=== PATIENT | female | born 1955 | race Caucasian/White ===

== ENCOUNTER 2016-06-10 07:52 | Outpatient (CLI) | payer OTHER ==
[2015-10-05 12:09] VITALS: BP 115/79
[2016-06-10] MEDS ORDERED: PROPOFOL 200 MG/20 ML VIAL IV ONE (08:00)
[2016-06-10] MEDS ORDERED: KETAMINE HCL 200 MG/20 ML VIAL ONE (08:00)
[2016-06-10] MEDS ORDERED: SALINE FLUSH 10 ML DISP.SYRIN IVF ONE (08:00)
[2016-06-10] MEDS ORDERED: TRIAMCINOLONE ACETONID 40MG/ML VIAL ONE (08:00)
[2016-06-10] MEDS ORDERED: LACTATED RINGERS 500 ML IV.SOLN IV ONE (08:00)
[2016-06-10] MEDS ORDERED: BUPIVACAINE HCL/EPINEPHRINE/PF 0.25% VIAL IM ONE (08:00)
[2016-06-10] MEDS ORDERED: LIDOCAINE HCL/PF 2% 100 MG/5 ML VIAL IJ ONE ×2 (08:00)
--- NOTE | 2016-06-10 10:43 | GENERIC FACET RF ---
SUBJECTIVE: I had the opportunity of seeing Oksana Chambers today in follow up. This is a patient with lumbar spondylosis. Her right side is much improved following radiofrequency neurolysis. She had better than 80% improvement with lumbar facet medial branch blocks and she presents for left L4, L5, and sacral ala radiofrequency neurolysis today under fluoroscopy. Anesthesia was requested because of opiate hypersensitivity and anxiety. ANESTHESIA: Monitored anesthesia care. ANESTHESIOLOGIST: Ny Branham CRNA PROCEDURE: Left L4, L5, and sacral ala lumbar facet radiofrequency neurolyses with fluoroscopic guidance (neurolyses of 3 medial nerve branches). DESCRIPTION OF PROCEDURE: The risks and benefits of the procedure were explained to the patient including the risk of infection, bleeding and unintended nerve injury, including the risk of radicular motor or sensory nerve injury and increased pain following the procedure. In addition, the risk of steroid exposure causing hyperglycemia, hypertension, osteoporosis, and increased infectious risks were explained to the patient. The patient understood these risks and agreed to proceed. The patient was placed in the prone position on the fluoroscopy table. The low back was cleaned and sterile drapes were applied. AP, lateral and oblique fluoroscopic views were obtained of the lumbar spine. An oblique fluoroscopic view was obtained of the left L4 lumbar vertebral body and transverse process. A 10 centimeter RFK introducer needle with a 10 mm active tip was advanced under direct fluoroscopic guidance until the tip of the introducer needle was located parallel to the medial branch of the posterior nerve root supplying the facet joint. This location was at the junction of the left transverse process of L4 with the superior articulating process. It was verified that there was no aspiration of CSF or blood from the needle tip. AP and lateral fluoroscopic views were obtained to verify the position of the needle as located at the junction of the transverse process and superior articulating process and to verify that the needle tip was not located within the epidural or intrathecal space. A 10 centimeter RFK radiofrequency probe was then introduced via the introducer needle and a 2 Hz stimulus was effected, gradually increasing the voltage to 2.5 volts, to verify that there was no motor neuron activation causing significant muscle contraction in the lower extremity or back. The probe was then removed from the introducer needle. Triamcinolone acetate, 2% lidocaine, and 0.25% bupivacaine with epinephrine was then injected through the introducer needle. The probe was reintroduced into the needle. A radiofrequency lesion was then effected at a temperature of 80 degrees for a period of 60 seconds. The needle was then rotated 180 degrees and withdrawn approximately 3 mm and a second lesion was effected for a period of 60 seconds at a temperature of 80 degrees C. The stylet was replaced in the introducer needle and the introducer was removed from the back. This exact procedure was repeated at the following levels: L5 and sacral ala ( for a total of 3 medial branch neurolyses). Bandages were applied over the injection sites. The patient was monitored for 20 minutes following the injection, during which time the patient experienced no adverse sequelae. The patient was discharge home in good condition with a flatbed truck driver driving the patient home. ASSESSMENT: Lumbar spondylosis/facet arthropathy. PLAN: Left L4, L5, and sacral ala lumbar facet radiofrequency neurolyses with fluoroscopic guidance (neurolyses of 3 medial nerve branches). FOLLOWUP: Return to clinic of problems develop or worsen. WINIFRED
== END 2016-06-10 07:53 ==
LOC: OUT 07:52
PROVIDERS: ATTEND Anesthesiology Pain Medicine
DX: M47.816 Spondylosis without myelopathy or radiculopathy, lumbar region (principal)
CPT/HCPCS: J2001; J2704; J3301; J7120; 64635; 64636; 99213; S1016

== ENCOUNTER 2016-07-22 08:20 | Outpatient (CLI) | payer OTHER ==
[2015-10-05 12:09] VITALS: BP 115/79
[~2016-07-22 08:20] MED LIST: BUPIVACAINE HCL/EPINEPHRINE/PF 0.25% VIAL IM ONE; Lidocaine 1% 5ml(IM or SUTURE)(PAIN CLINIC) ONE; MIDAZOLAM HCL 2 MG/2 ML VIAL ONE; NORMAL SALINE 500 ML IV.SOLN IV ONE; ONDANSETRON HCL/PF 4 MG/ 2ML VIAL ONE; PROPOFOL 500 MG/50 ML VIAL IV ONE; SALINE FLUSH 10 ML DISP.SYRIN IVF ONE; TRIAMCINOLONE ACETONID 40MG/ML VIAL ONE; fentaNYL CITRATE/PF 100 MCG/ 2ML AMP ONE
--- NOTE | 2016-07-23 11:27 | THORACIC FACET RF RHIZOTOMIES ---
REFERRING PHYSICIAN: Dr. Shasta Urbano Dear Dr. Urbano: SUBJECTIVE: I had the opportunity of following up with Oksana Chambers. This is a 61-year- old white female with thoracic and lumbar spondylosis. She has done very well with facet medial branch block and subsequently, has done well with a radiofrequency neurolysis of the lumbar spine. Her upper back pain is recurring. Low back pain is now controlled and she would like for me to proceed with a radiofrequency neurolysis of the thoracic spine today. She had better than 90% relief with facet medial branch blocks in January of 2016, of T4 , T5, T6, and T7. Plan today for radiofrequency neurolysis at T4 through T7 under monitored anesthesia care, which was necessary because of the degree of discomfort and anxiety that Ms. Chambers was experiencing with a previous injection. ANESTHESIA: Monitored anesthesia care. ANESTHESIOLOGIST: Phani Aquino CRNA PROCEDURE: Bilateral T4-T7 thoracic facet medial branch radiofrequency rhizotomies with fluoroscopic guidance (neurolyses of the 8 medial branches off the posterior primary nerve root rami). DESCRIPTION OF PROCEDURE: The risks and benefits of the neurolyses were explained to the patient, including the risks of infection, bleeding and unintended nerve injury. We also discussed the risk of steroid exposure causing hyperglycemia, hypertension, osteoporosis, or increased infectious risks. Lastly, the risk of pneumothorax was discussed. The patient understood these risks and agreed to proceed. The patient was on the fluoroscopy table in the prone position. The back was cleaned with Betadine scrub times three and a sterile drape was applied. AP and oblique fluoroscopic views were obtained of the thoracic spine. An oblique fluoroscopic view was obtained of the left T4 pedicle, transverse process and rib. A 10 cm RFK radiofrequency probe was then introduced via the introducer needle and a 2 Hz stimulus was effected, gradually increasing the voltage to 2.4 volts, to verify that there was no motor neuron activation causing significant muscle contraction in the chest, lower extremity or back. A 2 Hz stimulus, again, gradually increased the voltage this time all the way up to a voltage of 2.5 volts to verify that there was no motor neuron activation causing significant muscle contraction in the chest, lower extremity or back. Omnipaque 240 myelogram dye was injected through the needle and noted to course over the distribution of the medial branch of the posterior nerve root ramus. AP and lateral fluoroscopic views were obtained to verify the position of the needle as located at the junction of the transverse process and superior articulating process and to verify that the needle tip was not located within the epidural or intrathecal space. Triamcinolone acetate mixed with 1% lidocaine and 0.25% bupivacaine with epinephrine was then injected through the introducer needle. The probe was reintroduced into the needle. A radiofrequency lesion was then effected at a temperature of 80 degrees for a period of 60 seconds. The needle was then rotated 180 degrees and withdrawn approximately 3 mm. and a second lesion was effected for a period of 60 seconds at a temperature of 80 degrees C. The stylet was replaced in the introducer needle and the introducer was removed from the back. This exact procedure was repeated at the following levels: Bilateral T4, bilateral T5, bilateral T6, and bilateral T7 pedicle (for a total of 8 medial branch neurolyses). The patient tolerated the procedure well. The back was cleaned and bandages were applied over the injection sites. The patient was monitored for 20 minutes following the procedure, during this time the patient experienced no adverse sequelae. The patient was discharged home in good condition. ASSESSMENT: Thoracic spondylosis/facet arthropathy. PLAN: Bilateral T4-T7 thoracic facet medial branch radiofrequency rhizotomies with fluoroscopic guidance (neurolyses of the 8 medial branches off the posterior primary nerve root rami. FOLLOW UP: The patient will follow up in [address] Urbano, thank you again for allowing me to take part in the care of this nice lady. cc: Dr. Shasta VITALE
== END 2016-07-22 08:23 ==
LOC: OUT 08:20
PROVIDERS: ATTEND Anesthesiology Pain Medicine
DX: M47.814 Spondylosis without myelopathy or radiculopathy, thoracic region (principal)
CPT/HCPCS: J2250; J2405; J2704; J3010; J3301; J7060; 64633; 64634; 99214; S1016

== ENCOUNTER 2016-08-21 13:51 | Outpatient (CLI) | payer OTHER ==
[2015-10-05 12:09] VITALS: BP 115/79
[2016-08-21 14:11] LABS: BASOPHILS % 0.2 (0.0-1.5); MEAN CORPUSCULAR HEMOGLOBIN 33.3 pg (28.0-34.0); MEAN CORPUSCULAR VOLUME 96.9 fl (80.0-100.0); MONOCYTES % 4.5 % (0.0-11.0); NEUTROPHILS # 5.3 # k/uL (1.4-7.7)
[2016-08-21 14:47] LABS: eGFR (African) > 60; eGFR (Non-African) > 60
== END 2016-08-21 13:52 ==
LOC: LAB 13:51
PROVIDERS: ATTEND Physician Assistant
DX: R00.2 Palpitations (principal)
CPT/HCPCS: 36415; 80053; 85025

== ENCOUNTER 2016-09-23 10:51 | Outpatient (CLI) | payer OTHER ==
[2015-10-05 12:09] VITALS: BP 115/79
--- NOTE | 2016-09-23 15:20 | THORACIC FACET MBB ---
SUBJECTIVE: Ms. Chambers comes in with continued mid-thoracic back pain. I re-examined her. She has positive assist extension and pain and tenderness over the thoracic facet joints appearing more focal. Exam under fluoroscopy reveals increased kyphosis with no evidence of an acute compression fracture. At this point, I am going to place repeat facet medial branch blocks. If her symptoms continue, I would get a new MRI of the thoracic spine looking for a subacute compression fracture. PROCEDURE: Bilateral thoracic facet medial branch blocks with fluoroscopic guidance. DESCRIPTION OF PROCEDURE: The risks and benefits of the facet steroid injections were explained to the patient, including the risks of infection, bleeding and nerve injury. We also discussed the risk of steroid exposure causing hyperglycemia, hypertension, osteoporosis, or increased infectious risks. Lastly, the risk of pneumothorax was discussed. The patient understood these risks and agreed to proceed. The patient was positioned prone on the fluoroscopic procedure table. A sterile prep and drape were applied. Under AP and lateral fluoroscopic imaging , the T5 left transverse process and the superior articular process were identified. The area of the pedicle and the left transverse process were then identified obliquely. A number 25-gauge, 1-1/2-inch needle was advanced to the left T5 facet medial branch nerve. There was negative aspiration of blood or CSF. Following this, 0.25% bupivacaine with epinephrine and triamcinolone acetate was placed. In this exact same fashion, the right T5, bilateral T6, and bilateral T7 facet medial branch blocks were performed (for a total of 6 facet medial nerve branch blocks at 3 bilateral levels). At the conclusion of the procedure, the patient reported better than 50% relief but she was still having some pain symptoms. The patient tolerated the procedure well. The back was cleaned and bandages were applied over the injection sites. The patient was monitored for 20 minutes following the procedure, during this time the patient experienced no adverse sequelae. The patient was discharged home in good condition. ASSESSMENT: Thoracic spondylosis/facet arthropathy. PLAN: We will follow her up next month. If pain persists, I would obtain a new thoracic MRI study. cc: Dr. Elgin VITALE
== END 2016-09-23 10:52 ==
LOC: OUT 10:51
PROVIDERS: ATTEND Anesthesiology Pain Medicine
DX: M47.894 Other spondylosis, thoracic region (principal)
CPT/HCPCS: 64490; 64491; 64492; 99214; J3301

== ENCOUNTER 2016-10-20 10:26 | Outpatient (CLI) | payer OTHER ==
[2015-10-05 12:09] VITALS: BP 115/79
--- NOTE | 2016-10-20 15:00 | Diagnostic Imaging Report ---
[facility] [address] [facility] [address] Report Submission Date: Oct 20, 2016 2:54:35 PM CDT Patient Study Name: FRIDA PALOMARES Date: Oct 20, 2016 11:28:47 AM CDT Modality Type: MR Gender: F Description: MRI L SPINE W/O CONTRAST : 53 Institution: [facility] Physician: BLAS HAMMOND Examination: MRI lumbar spine History: Back discomfort Comparison exam: None available Technique: Lumbar spine MRI protocol. Findings: Normal height of the lumbar vertebral bodies. No anterior compression. Mild listhesis of L4 on L5: Approximately 5%. Disc desiccation L3/ L4 through L5/S1. Disc space narrowing L4/L5 and L5/S1. Conus medullaris is in normal location. Following levels evaluate in the axial plain: T12 - L1: No central disc protrusion. No cord effacement. Neural foramen are widely patent. L1 - L2: 4 mm central to left disc protrusion crowding the anterior margin of the central canal. Effacement of the left lateral recess and origin of the left neural foramen resulting in impingement upon the L2 nerve in the lateral recess and the left L1 nerve in the neural foramen. Right neuroforamen appears to be narrowed due to facet degenerative changes. Ligamenta flava hypertrophy and facet degenerative changes L2 - L3: 2 mm posterior disc osteophyte complex extending to left crowding the left lateral recess and left L3 nerve in the lateral recess. Bilateral facet degenerative changes narrow the neural foramen with mild to moderate stenosis upon the L2 nerves bilaterally. L3 - L4: 5 mm central disc protrusion associated with ligamenta flava hypertrophy and facet degenerative resultant moderate stenosis upon the central canal. Disc extends laterally associated with facet degenerative changes resulting in mild to moderate stenosis of on the L3 nerve within the neural foramen. L4 - L5: Listhesis. Facet degenerative changes and ligamenta flava hypertrophy result in moderate stenosis upon the central canal. Lateral disc extension and listhesis result in mild to moderate stenosis on the L4 nerves. L5 - S1: Disc flattening. 1 mm broad based disc. No effacement of the central canal. Minimal lateral disc extension however no L5 nerve encroachment. Incidentally noted are some benign-appearing renal cysts. Impression: Extensive disc and facet degenerative changes associated with L4/L5 listhesis resulting in both central canal and neural foramen narrowing with nerve impingement/stenosis at multiple levels as described above. Electronically signed on Oct 20, 2016 2:54:35 PM CDT by: David VITALE
--- NOTE | 2016-10-20 17:09 | Diagnostic Imaging Report ---
[facility] [address] [facility] [address] Report Submission Date: Oct 20, 2016 5:06:14 PM CDT Patient Study Name: FRIDA PALOMARES Date: Oct 20, 2016 11:00:46 AM CDT Modality Type: MR Gender: F Description: MRI T SPINE W/O CONTRAST : 53 Institution: [facility] Physician: BLAS HAMMOND Examination: MRI thoracic spine History: Back discomfort Comparison exam: 08 October 2015 Technique: Thoracic spine MRI protocol. Findings: Normal height of the thoracic vertebral bodies. No anterior compression. No abnormal listhesis. Central cord without expansion or syrinx. Axial imaging obtained from C7 through L1. Minimal disc osteophyte complex at T4/T5, T10/T11 and T11/T12. No effacement of the central cord. Mild crowding of the right T10/T11 neural foramen. Impression: Continued scattered mild disc osteophyte complex without central canal stenosis - grossly unchanged back to the September 2015 examination. Crowding of the right T10/T11 neuro foramen with likely nerve encroachment. Electronically signed on Oct 20, 2016 5:06:14 PM CDT by: David VITALE
== END 2016-10-20 10:27 ==
LOC: RAD 10:26
PROVIDERS: ATTEND Anesthesiology Pain Medicine
DX: M47.814 Spondylosis without myelopathy or radiculopathy, thoracic region (principal); M54.6 Pain in thoracic spine
CPT/HCPCS: 72146; 72148

== ENCOUNTER 2016-10-25 09:23 | Outpatient (CLI) | payer OTHER ==
[2015-10-05 12:09] VITALS: BP 115/79
--- NOTE | 2016-10-25 12:03 | PAIN CLINIC PROGRESS NOTES ---
REASON FOR VISIT: Ms. Chambers follows up with me today in the outpatient clinic. This is a 61- year-old white female with a history of spondylosis and increasing thoracic pain. I have treated her previously with thoracic facet medial branch blocks and radiofrequency neurolysis. She had return of thoracic pain and I repeated facet medial branch blocks last month and ordered an MRI of the thoracic spine and the MRI is significant only for spondylosis and increasing thoracic kyphosis. I have talked to her about cigarette smoking and spondylolytic back pain as she continues to use tobacco. She furthermore tells me that the facet medial branch blocks did not give her any immediate improvement, and therefore, I talked to her today about possibilities of treatment options which would include repeating facet medial branch blocks at approximately T5 where she hurts and see if we can get some immediate relief. At this point, she is wanting to consider her options. ASSESSMENT: 1. Thoracic spondylosis. 2. Thoracic spine pain. PLAN: I am going to follow her up with an x-ray image some time in the next couple of months. I provided her a prescription for Tylenol No. 4. I doubt this is an impending compression fracture. I believe that her symptoms are facet mediated and at this point, we should treat her expectantly. cc: Dr. Elgin VITALE
== END 2016-10-25 09:24 ==
LOC: OUT 09:23
PROVIDERS: ATTEND Anesthesiology Pain Medicine
DX: M47.9 Spondylosis, unspecified (principal)

== ENCOUNTER 2016-11-21 10:58 | Outpatient (CLI) | payer OTHER ==
[2015-10-05 12:09] VITALS: BP 115/79
--- NOTE | 2016-11-21 15:17 | Diagnostic Imaging Report ---
BLAS HAMMOND [facility] [address] [facility] [address] [address] Report Submission Date: Nov 21, 2016 2:49:39 PM CDT Patient Study Name: FRIDA PALOMARES Date: Nov 21, 2016 10:59:36 AM CDT Modality Type: CR Gender: F Description: SPINE : 53 Institution: [facility] Physician: BLAS HAMMOND Thoracic spine, 2 views. History: Upper back pain, no injury. Findings: The vertebral body heights and alignments are normal. There is mild leftward curvature near the thoracolumbar junction with mild intervertebral disc space narrowing noted. Impression: 1.No acute osseous abnormality. 2. Mild spondylosis Electronically signed on Nov 21, 2016 2:49:39 PM CDT by: Davi VITALE
== END 2016-11-21 11:00 ==
LOC: RAD 10:58
PROVIDERS: ATTEND Anesthesiology Pain Medicine
DX: M47.814 Spondylosis without myelopathy or radiculopathy, thoracic region (principal)
CPT/HCPCS: 72072

== ENCOUNTER 2016-11-25 09:54 | Outpatient (CLI) | payer OTHER ==
[2015-10-05 12:09] VITALS: BP 115/79
[~2016-11-25 09:54] MED LIST changes: -ONDANSETRON HCL/PF 4 MG/ 2ML VIAL ONE; -PROPOFOL 500 MG/50 ML VIAL IV ONE
--- NOTE | 2016-11-26 12:20 | THORACIC FACET MBB ---
SUBJECTIVE: Ms. Chambers follows up. Her x-rays revealed thoracic spondylosis, left-sided curvature consistent with thoracic facet disease. Plan today for bilateral thoracic facet medial branch blocks with IV sedation. PROCEDURE: Bilateral thoracic facet medial branch blocks with IV sedation and fluoroscopy. DESCRIPTION OF PROCEDURE: The risks and benefits of the facet steroid injections were explained to the patient, including the risks of infection, bleeding and nerve injury. We also discussed the risk of steroid exposure causing hyperglycemia, hypertension, osteoporosis, or increased infectious risks. Lastly, the risk of pneumothorax was discussed. The patient understood these risks and agreed to proceed. The patient was positioned prone on the fluoroscopic procedure table. The back was cleaned and sterile prep and drape were applied. Under AP, oblique, and lateral fluoroscopic imaging, the T4 vertebral body and left transverse process and left-sided pedicle were identified. Under direct imaging, a number 25-gauge, 1-1/2-inch needle was directed to the junction of the left L4 transverse process and the pedicle at the level of the left T4 facet medial branch nerve. At this point, the needle aspiration was negative for blood or CSF. Following this, medications were placed. The stylette was replaced in the needle and the needle was subsequently removed from the back. In this exact same fashion, the right T4, bilateral T5, and bilateral T6 facet medial branch blocks were performed. The patient tolerated the procedure well. There were no apparent complications. The back was cleaned and bandages were applied over the injection sites. The patient was monitored for 20 minutes following the procedure, during this time the patient experienced no adverse sequelae. The patient was discharged home with a diary in good condition. ASSESSMENT: Thoracic spondylosis. PLAN: Bilateral thoracic facet medial branch blocks with IV sedation and fluoroscopy. If her symptoms do not respond to facet medial branch blocks, would consider a new MRI of the thoracic spine for an impending compression fracture. FOLLOW UP: The patient is to call or return worsened symptoms or complications. cc: Dr. Elgin VITALE
== END 2016-11-25 10:00 ==
LOC: OUT 09:54
PROVIDERS: ATTEND Anesthesiology Pain Medicine
DX: M47.814 Spondylosis without myelopathy or radiculopathy, thoracic region (principal)
CPT/HCPCS: 99149; J2250; J3010; J3301; J7060; 64490; 64491; 64492; 99214; S1016

== ENCOUNTER 2016-12-23 11:05 | Outpatient (CLI) | payer OTHER ==
[2015-10-05 12:09] VITALS: BP 115/79
[~2016-12-23 11:05] MED LIST changes: +0.9 % SODIUM CHLORIDE PF 10 ML VIAL IJ ONE; -BUPIVACAINE HCL/EPINEPHRINE/PF 0.25% VIAL IM ONE; -MIDAZOLAM HCL 2 MG/2 ML VIAL ONE; -NORMAL SALINE 500 ML IV.SOLN IV ONE; -SALINE FLUSH 10 ML DISP.SYRIN IVF ONE; -fentaNYL CITRATE/PF 100 MCG/ 2ML AMP ONE
--- NOTE | 2016-12-23 15:37 | CERVICAL ESI WITH FLUORO ---
SUBJECTIVE: Ms. Chambers follows up with me today as an outpatient at [facility]. This is a 61-year-old white female I have treated for thoracic facet spondylolytic back pain and she comes in and her thoracic today has resolved. However, she is complaining now of new onset of right arm pain and pain radiating from the shoulder blade, right upper extremity in the forearm, wrist, and hand. She has aching down her entire right arm. It increases over the course of the day and she cannot use the arm. I examined her and she has diminished biceps and triceps reflex on the right at 1+ and 2+ on the left. 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 Plan for a C7-T1 epidural steroid injection today and work towards obtaining an MRI study if her symptoms are not improved. PROCEDURE: Right C7-T1 epidural steroid injection with fluoroscopic guidance. DESCRIPTION OF PROCEDURE: The risks and benefits were discussed with the patient, including the risks of infection, bleeding, nerve injury including paralysis, and headache. Furthermore , I discussed the risk of steroid exposure causing hyperglycemia, hypertension, osteoporosis, or increased infectious risks. The patient understood these risks and agreed to proceed. Consent was obtained. The patient was placed prone on the fluoroscopy table with a pillow underneath the chest to afford slight anterior flexion of the cervical spine. The patient' s back of the neck was cleaned and a sterile drape was applied. A 25-gauge thin-wall Tuohy epidural needle was inserted with a right paramedian approach at the C7-T1 level. The position of the needle was verified with AP and lateral fluoroscopic views. The needle was advanced with a normal saline loss-of -resistance technique until [id number] was obtained. On obtaining loss- of-resistance to normal saline it was verified that there was no aspiration of CSF or blood. At this point, Omnipaque 240 myelogram dye was injected into the cervical epidural space. It was verified with fluoroscopic views that the dye was located within the epidural space in the desired distribution. At this point , the medication was injected into the cervical epidural space. The stylet was replaced in the needle and the needle was removed from the neck. The neck was cleaned and a bandage was applied over the injection site. The patient tolerated the procedure well and was monitored afterwards for a total of 20 minutes during which time the vital signs remained stable and no adverse sequelae were experienced. The patient was discharged home in good condition. Prior to discharge the patient was given discharge instructions. ASSESSMENT: New onset of cervical radiculitis. PLAN: Right C7-T1 epidural steroid Injection. FOLLOW UP: Return to clinic if problems develop or worsen. cc: Dr. Elgin VITALE
== END 2016-12-23 11:06 ==
LOC: OUT 11:05
PROVIDERS: ATTEND Anesthesiology Pain Medicine
DX: M54.12 Radiculopathy, cervical region (principal)
CPT/HCPCS: J3301; Q9966; 99213

== ENCOUNTER 2017-02-17 09:00 | Outpatient (CLI) | payer OTHER ==
[2015-10-05 12:09] VITALS: BP 115/79
[2017-02-17 10:21] LABS: eGFR (African) > 60; eGFR (Non-African) > 60
--- NOTE | 2017-02-17 14:10 | Diagnostic Imaging Report ---
CHEYANNE LATIF [facility] [address] [facility] [address] [address] Report Submission Date: Feb 17, 2017 11:04:13 AM [employer] Patient Study Name: FRIDA PALOMARES Date: Feb 17, 2017 10:08:51 AM [employer] Modality Type: CT\SR Gender: F Description: CT ABD & PELVIS W/ CON : 53 Institution: [facility] Physician: CHEYANNE LATIF Examination: CT Abdomen/pelvis History: Generalized abdominal discomfort Comparison exams: None available for direct review Technique: CT Abdomen/pelvis with IV protocol. Findings: Liver demonstrates diffuse low attenuation. No central lesion. Surgical clips gallbladder fossa. Spleen, adrenals, and kidneys are without gross irregularity. No abnormal enhancement. 1.4 cm cyst involving the pancreatic head. Remainder of the pancreas without acute appearing process given exam sensitivity. Few subcentimeter renal cortical cysts. No suspicious renal calcifications. Ureters are nondilated in their course through the abdomen and pelvis. Bladder partially decompressed. Abdominal aorta demonstrates peripheral atherosclerotic disease. No aneurysm. Bowel unopacified limiting evaluation. No abnormal dilation. Stool within the large bowel limiting sensitivity. No mesenteric inflammatory changes or free fluid. Appendix is visualized and is without inflammatory changes. Few sigmoid diverticula. No adjacent inflammation. Osseous structures demonstrate degenerative changes. Lung bases demonstrate dependent atelectasis. No effusion. Impression: No abdominal mass or acute inflammatory process. 1.4 cm pancreatic cyst. Correlate with prior exams recommended when they become available (previously reported measure 1.6 cm). Subcentimeter renal cysts. No evidence for suspicious renal calcification or abnormal ureteric dilation. Sigmoid diverticulosis. No evidence for acute diverticulitis. Fatty liver. Electronically signed on Feb 17, 2017 11:04:13 AM HIDE [employer]ILL WORK[employer] by: David VITALE
== END 2017-02-17 09:02 ==
LOC: RAD 09:00
PROVIDERS: ATTEND Family Medicine
DX: K86.2 Cyst of pancreas (principal); I10 Essential (primary) hypertension
CPT/HCPCS: 74177; 82565; Q9967

== ENCOUNTER 2017-03-04 08:32 | Outpatient (CLI) | payer OTHER ==
[2015-10-05 12:09] VITALS: BP 115/79
[~2017-03-04 08:32] MED LIST changes: -0.9 % SODIUM CHLORIDE PF 10 ML VIAL IJ ONE; +BUPIVACAINE HCL/EPINEPHRINE/PF 0.25% VIAL IM ONE; +KETAMINE HCL 200 MG/20 ML VIAL ONE; +MIDAZOLAM HCL 2 MG/2 ML VIAL ONE; +NORMAL SALINE 500 ML IV.SOLN IV ONE; +PROPOFOL 200 MG/20 ML VIAL IV ONE; +SALINE FLUSH 10 ML DISP.SYRIN IVF ONE
--- NOTE | 2017-03-04 14:57 | THORACIC FACET RF RHIZOTOMIES ---
SUBJECTIVE: Ms. Chambers comes in today for thoracic RF at T4, T5, T6, and T7 on the right side. She had complete 100% relief with medial branch blocks. In the interim, she developed cervical radiculitis and her radiculitis is now improved after a cervical epidural steroid injection. Her back pain has returned in the mid- thoracic spine radiating to the right ribs. Plan today for a right-sided T4, T5 , T6, and T7 facet radiofrequency neurolysis under fluoroscopy. ANESTHESIA: Monitored anesthesia care by Elizabeth Dunn CRNA. PROCEDURE: Right-sided T4, T5, T6, and T7 facet medial branch radiofrequency rhizotomies with fluoroscopic guidance (neurolyses of the 4 medial branches off the posterior primary nerve root rami). DESCRIPTION OF PROCEDURE: Consent was obtained after risks were fully explained including bleeding, infection, and worsening symptoms with no improvement. The patient was on the fluoroscopy table in the prone position. The back was cleaned and a sterile drape was applied. AP and oblique fluoroscopic views were obtained of the thoracic spine. An oblique fluoroscopic view was obtained of the right T4 pedicle, transverse process, and rib. A 10 cm RFK introducer needle with 10 mm active tip was advanced under direct fluoroscopic guidance until the tip of the introducer needle was located just superior to the transverse processes at its base, near the head of the rib: the site of the posterior primary nerve root ramus. It was verified that there was no aspiration of CSF or blood or air. A 10 cm RFK radiofrequency probe was then introduced via the introducer needle and a 2 Hz stimulus was effected, gradually increasing the voltage to 2.4 volts, to verify that there was no motor neuron activation causing significant muscle contraction in the chest, lower extremity or back. A 10 cm RFK radiofrequency probe was then introduced via the introducer needle and a 50 Hz stimulus was effected, Gradually increasing the voltage up to 1 volt. The stimulus was then changed to a 2 Hz stimulus, again gradually increasing the voltage, this time all the way up to a voltage of 2.5 volts, to verify that there was no motor neuron activation causing significant muscle contraction in the chest, lower extremity or back. AP and lateral fluoroscopic views were obtained to verify the position of the needle as located at the junction of the transverse process and superior articulating process and to verify that the needle tip was not located within the epidural or intrathecal space. The medication was then injected through the introducer needle. The probe was reintroduced into the needle. A radiofrequency lesion was then effected at a temperature of 80 degrees for a period of 60 seconds. The needle was then rotated 180 degrees and withdrawn approximately 3 mm and a second lesion was effected for a period of 60 seconds at a temperature of 80 degrees C. The stylet was replaced in the introducer needle and the introducer was removed from the back. This exact procedure was repeated at the following levels: T5, T6, and T7 pedicles (for a total of 4 medial branch neurolyses). The patient tolerated the procedure well. The back was cleaned and bandages were applied over the injection sites. The patient was monitored for 20 minutes following the procedure, during this time the patient experienced no adverse sequelae. The patient was discharged home in good condition. ASSESSMENT: Thoracic spondylosis/facet arthropathy. PLAN: Right-sided T4, T5, T6, and T7 facet medial branch radiofrequency rhizotomies with fluoroscopic guidance (neurolyses of the 4 medial branches off the posterior primary nerve root rami). FOLLOW UP: The patient is to call or return if she has worsened symptoms or complications. cc: Dr. Elgin VITALE
== END 2017-03-04 08:33 ==
LOC: OUT 08:32
PROVIDERS: ATTEND Anesthesiology Pain Medicine
DX: M47.814 Spondylosis without myelopathy or radiculopathy, thoracic region (principal)
CPT/HCPCS: 64633; 64634; 99213; 99214; J2250; J2704; J3301; J7060; S1016

== ENCOUNTER 2017-05-13 11:59 | Outpatient (CLI) | payer OTHER ==
[2015-10-05 12:09] VITALS: BP 115/79
--- NOTE | 2017-05-13 13:41 | Diagnostic Imaging Report ---
CHEYANNE LATIF [facility] [address] [facility].[address] [address] Report Submission Date: May 13, 2017 12:39:58 PM DRIVER OPERATOR Patient Study Name: FRIDA PALOMARES Date: May 13, 2017 12:17:42 PM DRIVER OPERATOR Modality Type: CR Gender: F Description: UPPER EXTREMITY : 53 Institution: [facility] Physician: CHEYANNE LATIF Examination: Plain film hand History: Hand discomfort/arthritis Comparison exams: None available Findings: 3 views the right and left hands demonstrates articular degenerative spurring. Mild generalized osteopenia. No evidence for fracture line. No gross soft tissue abnormality. Impression: Osteopenia and degenerative changes. No evidence for acute fracture. Electronically signed on May 13, 2017 12:39:58 PM DRIVER OPERATOR by: David VITALE
== END 2017-05-13 12:00 ==
LOC: LAB 11:59
PROVIDERS: ATTEND Family Medicine
DX: M06.9 Rheumatoid arthritis, unspecified (principal)
CPT/HCPCS: 36415; 85651; 86431

== ENCOUNTER 2017-06-03 13:03 | Outpatient (CLI) | payer OTHER ==
[2015-10-05 12:09] VITALS: BP 115/79
[~2017-06-03 13:03] MED LIST changes: +0.9 % SODIUM CHLORIDE PF 10 ML VIAL IJ ONE; -BUPIVACAINE HCL/EPINEPHRINE/PF 0.25% VIAL IM ONE; +BUPIVACAINE HCL/PF 2.5 MG/ML 10ML VIAL IV ONE; -KETAMINE HCL 200 MG/20 ML VIAL ONE; -PROPOFOL 200 MG/20 ML VIAL IV ONE; +fentaNYL CITRATE/PF 100 MCG/ 2ML AMP ONE
--- NOTE | 2017-06-04 12:03 | CERVICAL ESI WITH FLUORO ---
SUBJECTIVE: I had the opportunity of following up with Oksana Chambers today as an outpatient at [facility]. This is a 62-year-old white female with recalcitrant neck pain, bilateral shoulders, and right upper extremity now consistent with radiculitis. She has had multiple events of cervicalgia/neck pain and headaches. She is here today for a palliative epidural steroid injection. She has been tried on multiple medications. She has had physical therapy, chiropractic manipulation, and previously failed conservative treatment. Plan today for a right cervical epidural steroid injection under fluoroscopic guidance. PROCEDURE: Right cervical epidural steroid injection with fluoroscopic guidance. DESCRIPTION OF PROCEDURE: The risks and benefits were discussed with the patient, including the risks of infection, bleeding, nerve injury including paralysis, and headache. Furthermore, I discussed the risk of steroid exposure causing hyperglycemia, hypertension, osteoporosis, or increased infectious risks. The patient understood these risks and agreed to proceed. Consent was obtained. The patient was placed prone on the fluoroscopy table with a pillow underneath the chest to afford slight anterior flexion of the cervical spine. The patient' s back of the neck was cleaned and a sterile drape was applied. A 23-gauge, thin-wall Tuohy epidural needle was inserted with a right paramedian approach at the C6-C7 interspace level. The position of the needle was verified with AP and lateral fluoroscopic views. The needle was advanced with a normal saline mvnc-xu-adwndwoegz technique until qryj-ms-escxhlquwu was obtained. On obtaining ujij-uz-nyojpjrcma to normal saline it was verified that there was no aspiration of CSF or blood. At this point, Omnipaque 240 myelogram dye was injected into the cervical epidural space. It was verified with fluoroscopic views that the dye was located within the epidural space in the desired distribution. At this point, the medication was injected into the cervical epidural space. The stylet was replaced in the needle and the needle was removed from the neck. The neck was cleaned and a bandage was applied over the injection site. The patient tolerated the procedure well and was monitored afterwards for a total of 20 minutes during which time the vital signs remained stable and no adverse sequelae were experienced. The patient was discharged home in good condition. Prior to discharge the patient was given discharge instructions. ASSESSMENT: Cervical radiculitis. PLAN: Right cervical epidural steroid injection with fluoroscopic guidance. FOLLOW UP: Return to clinic if problems develop or worsen. cc: Dr. Elgin VITALE
== END 2017-06-03 13:04 ==
LOC: OUT 13:03
PROVIDERS: ATTEND Anesthesiology Pain Medicine
DX: M54.12 Radiculopathy, cervical region (principal)
CPT/HCPCS: J2250; J3010; J3301; J3490; J7060; Q9966; 62321; 99213; S1016

== ENCOUNTER 2017-07-01 12:26 | Outpatient (CLI) | payer OTHER ==
[2015-10-05 12:09] VITALS: BP 115/79
--- NOTE | 2017-07-07 13:50 | PAIN CLINIC PROGRESS NOTES ---
REASON FOR VISIT: I had the opportunity of following up with Oksana Chambers today. Her arm pain is improved. Her CT of her cervical spine reveals C4-C5 and C6-C7 cervical spondylosis and multi-level neural foraminal narrowing without spinal stenosis. The cervical NATALEE has helped her. She says that my treatment for her low back pain has helped as well. She has made an appointment today in consideration for further workup and treatment for rheumatoid arthritis and fibromyalgia. She tells me that she has been on Lyrica in the past, which worked, but caused swelling after a few months and it had to be discontinued and that she was given [address] Lyons and the tramadol has been helpful. She has not been able to sleep and she has been on 25 mg of amitriptyline which helps her sleep but does not seem to give her more than a few hours of rest and finally has been on meloxicam. She has not had a rheumatologic workup, but she tells me that she was at one point treated for rheumatoid arthritis at her previous residence in [place]. She has a normal rheumatoid factor but has not had a formal rheumatologic evaluation. She has bilateral hand pain, bilateral foot numbness, and a history of multiple joint complaints. PLAN: At this point, I told Mrs. Chambers, it would be reasonable for her to have a p.r.n. prescription for tramadol. I would give her #30 tramadol a month to use 1/2 to 1 tablet p.o. with Tylenol and that I would increase the amitriptyline to 50 mg at bedtime and have her see a net developer for a formal evaluation. She seems content with this plan. I will follow her up if her symptoms worsen or reoccur. Dr. Lyons, thanks again for allowing me to take part in the care of this nice lady. cc: Dr. Elgin VITALE
== END 2017-07-01 12:27 ==
LOC: OUT 12:26
PROVIDERS: ATTEND Anesthesiology Pain Medicine
DX: M43.02 Spondylolysis, cervical region (principal); M54.5 Low back pain; M79.642 Pain in left hand; M79.672 Pain in left foot; M79.641 Pain in right hand; M79.671 Pain in right foot
CPT/HCPCS: 99213; 99214

== ENCOUNTER 2017-08-01 14:01 | Outpatient (CLI) | payer OTHER ==
[2015-10-05 12:09] VITALS: BP 115/79
--- NOTE | 2017-08-04 13:33 | CONSULTATION REPORT ---
REFERRING PHYSICIAN: Dr. Walter Lyons CONSULTING PHYSICIAN: Bob Kebede MD Dear Dr. Lyons and Dr. Hernández: HISTORY OF PRESENT ILLNESS: Thank you for referring Oksana Chambers for an evaluation for "arthritis." This is a 62-year-old white woman with chronic neck and back pain and known lumbar and thoracic spondylosis who is coming to see me for pain in her hands and feet. It has been present for at least 10 years. She points to the knuckles, the wrists, and the ankles. She has morning stiffness, which is over 2 hours. She has not developed any deformities. She at times has seen some swelling. Looking at her old chart, she had a negative BIJU in 2012 and a recent rheumatoid factor was negative, as well as a normal sedimentation rate. She has no family history of rheumatoid arthritis or connective tissue disorder. She gets relief when she takes Mobic and meloxicam. She describes her pain as 8 to 9 over 10 and she has difficulty dressing, getting out of bed, turning faucets on and off, and getting out of her car. She has much difficulty lifting a glass, washing, bending and is unable to walk for any prolonged period of time. PAST MEDICAL HISTORY: Peptic ulcer disease. PAST SURGICAL HISTORY: 1. Tubal ligation. 2. Parathyroid removal. 3. Some sort bile duct surgery. 4. Lumpectomy of left breast. 5. Cholecystectomy. 6. Upon review of the old chart, the patient also has hypertension. 7. Gastric reflux disease. 8. COPD. ALLERGIES: 1. Ciprofloxacin. 2. Sulfa antibiotics. SOCIAL HISTORY: She does smoke. She does not drink. She is disabled. REVIEW OF SYSTEMS: She tells me she has lost 60 pounds. She has fatigue and weakness and no chills or fever. She has a little red eyes and dry eyes but no loss of vision. She has had no mouth sores. No frequent sore throat. No hoarseness. No chest pain, shortness of breath, cough or wheezing. No nausea, vomiting, or diarrhea. No dark stools or bloody stools. No urinary symptoms. No skin rashes, hives, photosensitivity, color changes in the hands or feet in the cold. Some hand sensitivity. She does admit to excessive worries, anxiety, and difficulty sleeping. No swollen or tender lymph nodes. PHYSICAL EXAMINATION: VITAL SIGNS: T: 98.4, R: 12, heart rate 80, BP: 157/90. Height: 5 feet 6 inches. Weight: 157. HEENT: Sclerae are anicteric. Conjunctivae are pink. No stomatitis or glossitis. No scalp or external ear lesions. No nasal lesions. No mal or rash. Neck: No cervical nodes. LUNGS: Clear with no crackles or wheezing. HEART: Regular rate and rhythm. ABDOMEN: Soft. VASCULAR: No edema or cyanosis. PERIPHERAL JOINTS: She has classic changes of osteoarthritis quite mild of the DIPs, PIPs, and CMCs, although not significantly tender. She has exquisite tenderness of the MCP joints but no synovitis, fullness, or misalignment. Elbows, shoulders, AC/SC, and TMJ joints are unremarkable. Hips, knees, ankles , and feet are unremarkable. She has marked loss of normal lumbar flexion, extension, and rotation with straightening of the lumbar lordosis. Neck revealed a fairly unrestricted range of motion. IMPRESSION: Idiopathic polyarthritis. PLAN: 1. I am going to concentrate on this lady's peripheral symptoms and obtain AVISE testing, repeat BIJU, and full rheumatoid profile. 2. I want to personally review her x-rays and films which unfortunately, could not be accessed today. 3. I will give the patient a call with her results. Thank you very much. Best regards, cc: Dr. Walter VITALE
== END 2017-08-01 14:52 ==
LOC: RHEU 14:01
PROVIDERS: ATTEND Internal Medicine
DX: M79.642 Pain in left hand (principal); M79.672 Pain in left foot; M79.641 Pain in right hand; M79.671 Pain in right foot; M13.0 Polyarthritis, unspecified
CPT/HCPCS: 36415; 99213; 99214

== ENCOUNTER 2017-08-26 08:41 | Outpatient (CLI) | payer OTHER ==
[2015-10-05 12:09] VITALS: BP 115/79
[2017-08-26] MEDS ORDERED: NORMAL SALINE 500 ML IV.SOLN IV ONE (08:45)
[2017-08-26] MEDS ORDERED: BUPIVACAINE HCL/EPINEPHRINE/PF 0.25% VIAL IM ONE (08:45)
[2017-08-26] MEDS ORDERED: KETAMINE HCL 200 MG/20 ML VIAL ONE (08:45)
[2017-08-26] MEDS ORDERED: TRIAMCINOLONE ACETONID 40MG/ML VIAL ONE (08:45)
[2017-08-26] MEDS ORDERED: Lidocaine 1% 5ml(IM or SUTURE)(PAIN CLINIC) ONE (08:45)
[2017-08-26] MEDS ORDERED: PROPOFOL 200 MG/20 ML VIAL IV ONE (08:45)
--- NOTE | 2017-08-26 15:00 | CERVICAL MEDIAL BRANCH BLOCKS ---
SUBJECTIVE: Ms. Chambers is seen today with recurrent right-sided neck pain, spondylosis, and she has hyperalgesia. She says that the facets have been effective in the past and radiofrequency has been effective in the past and her neck pain has reoccurred. She is also complaining of some low back pain. She is requesting an anesthetic because of her intolerance to the injection and general anxiety. She has been on tramadol, Tylenol with codeine, and amitriptyline, which we will provide her with refills today. We are going to plan on placing palliative cervical facet medial branch blocks with fluoroscopic guidance for her right-sided neck pain today at C3, C4, C5, and C6 and try to push her out to a 4 month follow up. I told her that we do not want to give her more injections than what is absolutely necessary. Plan today for a right-sided C3, C4, C5, and C6 facet medial branch blocks with fluoroscopic guidance under monitored care by Uday ROBERSON. ANESTHESIA: Monitored anesthesia care by Uday ROBERSON. PROCEDURE: Right C3-C4, C4-C5 and C5-C6 cervical facet joint medial branch blocks with fluoroscopy guidance. DESCRIPTION OF PROCEDURE: The risks and benefits of today's injections were discussed with the patient, including the risk of infection, bleeding, seizure, increased neck or arm pain, and nerve injury including paralysis, and headache. Furthermore, I discussed the risk of steroid exposure causing hyperglycemia, hypertension, osteoporosis, or increased infectious risks. The patient understood these risks and agreed to proceed. Consent was obtained. The patient was placed in the prone position on the fluoroscopy table with a pillow supporting the head and maintaining a neutral cervical spine position. The patient's posterior neck was cleaned and a sterile drape was applied. An AP fluoroscopic view of the C3 vertebra was obtained. Under direct fluoroscopic guidance, a spinal needle was inserted in an AP direction until it contacted the lateral aspect of the right C3 articular pillar at the midpoint ( the "waist"). The position of the needle was verified with AP and lateral fluoroscopic views. It was verified that there was no aspiration of CSF or blood. At this point, Omnipaque 240 myelogram dye was injected through the needle. It was verified with fluoroscopic views that the dye was located along the lateral aspect of the articular pillar of the site of the medial nerve branch of the dorsal ramus innervating the facet joints. At this point, the medication was injected. The stylet was replaced in the needle and the needle was removed from the neck. The exact same procedure was repeated at right C4 articular pillar, right C5 articular pillar, and right C6 articular pillar (for a total of 4 medial nerve branches blocked). The neck was cleaned and bandage was applied over the injection sites. The patient tolerated the procedure well and was monitored afterwards for a total of 20 minutes during which time the vital signs remained stable. The patient experienced no adverse sequelae and was discharged home in good condition. Prior to discharge the patient was given discharge instructions. ASSESSMENT: Cervical facet arthropathy/spondylosis. PLAN: Right C3-C4, C4-C5 and C5-C6 cervical facet joint medial branch blocks with fluoroscopy guidance. FOLLOW UP: Follow up in 4 months. cc: Dr. Shasta VITALE
== END 2017-08-26 08:42 ==
LOC: OUT 08:41
PROVIDERS: ATTEND Anesthesiology Pain Medicine
DX: M12.88 Other specific arthropathies, not elsewhere classified, other specified site (principal)
CPT/HCPCS: 64490; 64491; 64492; 99213; J2704; J3301; J7060; Q9966; S1016

== ENCOUNTER 2017-09-26 11:12 | Outpatient (CLI) | payer OTHER ==
[2015-10-05 12:09] VITALS: BP 115/79
--- NOTE | 2017-09-26 15:40 | OP Clinic Progress Note ---
REFERRING PHYSICIAN: Dr. Elgin Hernández CONSULTING PHYSICIAN: Bob Kebede MD Dear Dr. Lyons and Dr. Hernández: HISTORY OF PRESENT ILLNESS: I had the pleasure of seeing Oksana Chambers on continued evaluation of her "arthritis." She continues to have pain and stiffness in her hands and wrists, but since I last saw her, she developed severe pain in her left ankle associated with swelling and "blister formation." She shows me some pictures and indeed the ankle was diffusely swollen and red. This has been going on for 4 weeks now. She denies any history of trauma. She continues to have morning stiffness, which is generalized and lasting over 2 hours. PAST MEDICAL HISTORY: 1. Lumbar and thoracic spondylosis. 2. Peptic ulcer disease. 3. Tubal ligation. 4. Parathyroidectomy. 5. Lumpectomy of left breast. 6. Cholecystectomy. 7. Hypertension. 8. Gastric reflux disease. 9. COPD. ALLERGIES: 1. Ciprofloxacin. 2. Sulfa. SOCIAL HISTORY: She continues to smoke. REVIEW OF SYSTEMS: Review of systems, otherwise, remains unchanged. No fevers, chills, or sweats. She denies any shortness of breath or cough, nausea or vomiting, difficulty swallowing, or constipation. HISTORY OF PRESENT ILLNESS: GENERAL: She is limping. VITAL SIGNS: Height: 5 feet 6 inches. Weight: 154 pounds. T: 98, R: 20, heart rate 64, BP: 134/79. HEENT: Grossly unremarkable. LUNGS: Clear with no crackles or wheezing. HEART: Regular rhythm. ABDOMEN: Soft and nontender. VASCULAR: No edema or cyanosis. PERIPHERAL JOINTS: A little tenderness at the DIPs, PIPs, but no synovitis. No MTP tenderness. The left ankle is tender and still slightly swollen with pain on flexion, extension, and eversion. LABORATORY: Her BIJU profile did come back positive for anti-centromere antibody, as well as an anti-CENP. The rest of her serologies including, rheumatoid serologies, were negative. IMPRESSION: 1. Limited scleroderma. 2. Left ankle pain and abnormal exam. PLAN: 1. I am instituting Plaquenil 200 mg twice a day for her joint discomfort. 2. We will obtain a left ankle x-ray today. 3. I will see her back in 3 months. Thank you very much for the opportunity to take care of your patient. Best regards, Dr. Walter VITALE
--- NOTE | 2017-09-26 18:50 | Diagnostic Imaging Report ---
FRANKLIN CONTRERAS [facility] [address] [facility] [address] [address] Report Submission Date: Sep 26, 2017 12:08:32 PM CDT Patient Study Name: FRIDA PALOMARES Date: Sep 26, 2017 11:30:28 AM CDT Modality Type: DX Gender: F Description: LOWER EXTREMITY : 53 Institution: [facility] Physician: FRANKLIN CONTRERAS Examination: Plain film left ankle History: LEFT ANKLE, PAIN AND SWELLING IN LEFT ANKLE FOR ABOUT A MONTH, NO KNOWN INJURY (Hx) Findings: 3 views of the left ankle demonstrates normal cortical margins. No fracture or dislocation. Talar dome is intact. No soft tissue swelling. No joint effusion. Impression: No acute osseous process. Electronically signed on Sep 26, 2017 12:08:32 PM CDT by: David VITALE
== END 2017-09-26 12:17 ==
LOC: RHEU 11:12
PROVIDERS: ATTEND Internal Medicine
DX: L94.0 Localized scleroderma [morphea] (principal); M25.572 Pain in left ankle and joints of left foot; R93.5 Abnormal findings on diagnostic imaging of other abdominal regions, including retroperitoneum
CPT/HCPCS: 73610; 99213; 99214

== ENCOUNTER 2017-10-16 10:54 | Outpatient (CLI) | payer OTHER ==
[2015-10-05 12:09] VITALS: BP 115/79
[2017-10-16 12:39] LABS: eGFR (African) > 60; eGFR (Non-African) > 60
== END 2017-10-16 10:56 ==
LOC: LAB 10:54
PROVIDERS: ATTEND Family Medicine
DX: E78.5 Hyperlipidemia, unspecified (principal); M79.672 Pain in left foot
CPT/HCPCS: 36415; 80053; 80061; 84550

== ENCOUNTER 2017-12-02 07:04 | Outpatient (CLI) | payer OTHER ==
[2015-10-05 12:09] VITALS: BP 115/79
[2017-12-02] MEDS ORDERED: PROPOFOL 200 MG/20 ML VIAL IV ONE (09:00)
[2017-12-02] MEDS ORDERED: BUPIVACAINE HCL/PF 2.5 MG/ML 10ML VIAL IV ONE (09:00)
[2017-12-02] MEDS ORDERED: Lidocaine 1% 5ml(IM or SUTURE)(PAIN CLINIC) ONE (09:00)
[2017-12-02] MEDS ORDERED: LIDOCAINE HCL/PF 2% 100 MG/5 ML VIAL IJ ONE (09:00)
[2017-12-02] MEDS ORDERED: NORMAL SALINE 500 ML IV.SOLN IV ONE (09:00)
[2017-12-02] MEDS ORDERED: SALINE FLUSH 10 ML DISP.SYRIN IVF ONE (09:00)
[2017-12-02] MEDS ORDERED: ONDANSETRON HCL/PF 4 MG/ 2ML VIAL ONE (09:00)
--- NOTE | 2017-12-07 10:09 | LUMBAR FACET MBB ---
SUBJECTIVE: Ms. Chambers follows up today. She had immediate 100% relief in her cervical spine pain, which she says is beginning to reoccur. She is here for low back pain. She has a history of multi-level spondylosis and tobacco use. She has had good results with lumbar radiofrequency in the past. She presents today for lumbar facet medial branch blocks at L4, L5, sacral ala, and dorsal root of S1. I have requested anesthesia for monitored care because of intolerance to injections and because of the great deal of discomfort she is in today. ANESTHESIA: IV sedation with monitored care anesthesia. PROCEDURE: L4, L5, sacral ala, and dorsal root of S1 facet medial branch blocks with fluoroscopic guidance. DESCRIPTION OF PROCEDURE: Consent was obtained after risks were fully explained including bleeding, infection, nerve damage, worsening of pain, and no improvement. The patient was positioned prone on the fluoroscopic procedure table and sterile prep and drape were applied. Under AP, oblique, and lateral fluoroscopic imaging, the L4 vertebral body and transverse process were identified and a needle was placed at the left L4 transverse process at the junction of the superior articular process in the location of the L4 medial branch nerve. There was no aspiration of blood or CSF. Following this, the medication was placed. In this exact same fashion, the procedure was repeated to the contralateral L4, bilateral L5, and bilateral sacral ala for a total of 6 medial nerve branch blocks performed. In addition, 2 dorsal injections of the S1 nerve roots were also performed on both the left and right side. Bandages were applied over the injection sites. The patient was monitored for 20 minutes following the injection, during which time the patient experienced no adverse sequelae. The patient was discharge home in good condition with a hyster driver driving the patient home. ASSESSMENT: 1. Lumbar spondylosis, status post L4 through sacral and S1 dorsal facet medial branch blocks. 2. Successful cervical facet medial branch blocks. PLAN: L4, L5, sacral ala, and dorsal root of S1 facet medial branch blocks with fluoroscopic guidance. FOLLOWUP: Follow up for cervical radiofrequency neurolysis. cc: Dr. Elgin VITALE
== END 2017-12-02 07:05 ==
LOC: OUT 07:04
PROVIDERS: ATTEND Anesthesiology Pain Medicine
DX: M47.816 Spondylosis without myelopathy or radiculopathy, lumbar region (principal)
CPT/HCPCS: 99213; G0463; J2001; J2405; J2704; J7060; J3490; Q9966; S1016

== ENCOUNTER 2018-04-03 12:24 | Outpatient (CLI) | payer OTHER ==
[2015-10-05 12:09] VITALS: BP 115/79
--- NOTE | 2018-04-15 11:28 | OP Clinic Progress Note ---
REASON FOR VISIT: Oksana Chambers returns for follow up on her polyarthritis, centromere antibody positive. She continues to have some pain and stiffness in her hands and wrists. She tried Plaquenil for 3 months and had no response. Otherwise, no new medical issues. REVIEW OF SYSTEMS: No fevers, chills, sweats, chest pain, shortness of breath, cough, or wheezing. She does, however, have plantar fasciitis. PHYSICAL EXAMINATION: VITAL SIGNS: BP: 130/75, P: 70, R: 12, T: 98.3. HEENT: Sclerae are anicteric. Conjunctivae are pink. No stomatitis or glossitis. LUNGS: Clear bilaterally. HEART: Regular rate and rhythm. ABDOMEN: Soft and nontender. VASCULAR: No edema or cyanosis. PERIPHERAL JOINTS: Tenderness but no overt synovitis at the PIPs, MCPs, and wrists. IMPRESSION: 1. Idiopathic polyarthritis. 2. Limited scleroderma. PLAN: 1. I am going to try prednisone 5 mg daily for her joint pains, as well as her autoimmune hepatitis. 2. I will see her back in 2 months in follow up. Thank you very much. Best regards, cc: Dr. Elgin VITALE
== END 2018-04-03 12:35 ==
LOC: RHEU 12:24
PROVIDERS: ATTEND Internal Medicine
DX: M13.89 Other specified arthritis, multiple sites (principal); M34.9 Systemic sclerosis, unspecified
CPT/HCPCS: 99212; 99213